=== PATIENT | female | born 1935 | race African-American/Black ===

== ENCOUNTER 2016-09-02 16:47 | Emergency (ER) | payer MEDICARE, OTHER ==
--- NOTE | 2016-09-02 20:01 | ER Document Report ---
ED Medical Screen (RME) - General Chief Complaint: Leg Pain Stated Complaint: PAIN IN LEGS Time Seen by Provider: 09/02/16 19:42 Mode of Arrival: Wheelchair Notes: This is a 81-year-old female with a history of hypertension, coronary artery disease, and hyperlipidemia who presents with painful swelling in her legs. She states that the right leg seems more swollen today however her left leg has had blisters anteriorly which have recently ruptured. Her symptoms have been present for the past week. She denies any fevers or chills but states she overall just does not feel well. No prior history of DVT. Prior history of cellulitis. Patient does not have a history of CHF and is not on a diuretic. She called her primary care physician today (Dr. Cuadra) about these symptoms, and she states she was told to come to the ER for further evaluation I have greeted and performed a rapid initial assessment of this patient. A comprehensive ED assessment and evaluation of the patient, analysis of test results and completion of the medical decision making process will be conducted by additional ED providers. TRAVEL OUTSIDE OF THE [place] IN LAST 30 DAYS: No - Related Data Allergies/Adverse Reactions: Sulfa (Sulfonamide Antibiotics) Allergy (Verified 08/18/13 11:26) DIZZY Past Medical History - Past Medical History Cardiac Medical History: Reports: Hx Hypertension - MEDICATED Denies: Hx Heart Attack Pulmonary Medical History: Denies: Hx Asthma Neurological Medical History: Denies: Hx Cerebrovascular Accident, Hx Seizures Renal/ Medical History: Denies: Hx Peritoneal Dialysis GI Medical History: Denies: Hx Hepatitis, Hx Hiatal Hernia, Hx Ulcer Infectious Medical History: Denies: Hx Hepatitis Past Surgical History: Reports: Hx Hysterectomy, Hx Open Heart Surgery - STENTS X1 2010. Denies: Hx Mastectomy, Hx Pacemaker Physical Exam - Vital signs Vitals: Temp Pulse Resp BP Pulse Ox 98.5 F 97 16 174/102 H 100 09/02/16 18:14 09/02/16 18:14 09/02/16 18:14 09/02/16 18:14 09/02/16 18:14 - General General appearance: Appears well In distress: None - Cardiovascular Rhythm: Regular Heart sounds: Normal auscultation, S1 appreciated, S2 appreciated - Extremities Notes: 1-2+ edema to lower legs bilaterally, R>L. L medial chatterjee with induration and warmth, and several areas of superficial skin breakdown anteriorly where blisters have ruptured. Course - Vital Signs Vital signs: Temp Pulse Resp BP Pulse Ox 98.5 F 97 16 174/102 H 100 09/02/16 18:14 09/02/16 18:14 09/02/16 18:14 09/02/16 18:14 09/02/16 18:14
[2016-09-02 20:42] LABS: ABSOLUTE EOSINOPHILS # (AUTO) 0.2 10^3/uL (0.0-0.6); ABSOLUTE MONOCYTES (AUTO) 0.4 10^3/uL (0.1-1.4); ABSOLUTE NEUT (AUTO) 4.2 10^3/uL (1.7-8.2); BASOPHILS % (AUTO) 0.3 % (0-2); EOSINOPHILS % (AUTO) 2.3 % (0-6); HEMATOCRIT 34.6 % (36.0-47.0); HEMOGLOBIN 11.2 g/dL (12.0-15.5); LYMPHOCYTES % (AUTO) 29.6 % (13-45); MEAN CORPUSCULAR HEMOGLOBIN 32.5 pg (27.0-33.4); MEAN CORPUSCULAR HGB CONC 32.4 g/dL (32.0-36.0); MEAN CORPUSCULAR VOLUME 100 fl (80-97); MONOCYTES % (AUTO) 5.9 % (3-13); RED BLOOD COUNT 3.45 10^6/uL (3.72-5.28); RED CELL DISTRIBUTION WIDTH 18.2 % (11.5-14.0); SEGMENTED NEUTROPHILS % (AUTO) 61.9 % (42-78); WHITE BLOOD COUNT 6.8 10^3/uL (4.0-10.5)
[2016-09-02 20:55] LABS: ALANINE AMINOTRANSFERASE 28 U/L (9-52); ALBUMIN 4.1 g/dL (3.5-5.0); ALKALINE PHOSPHATASE 103 U/L (38-126); ANION GAP 11 (5-19); ASPARTATE AMINO TRANSFERASE 23 U/L (14-36); BILIRUBIN,DIRECT 0.2 mg/dL (0.0-0.4); BILIRUBIN,TOTAL 0.5 mg/dL (0.2-1.3); BLOOD UREA NITROGEN 26 mg/dL (7-20); CARBON DIOXIDE 28 mmol/L (22-30); CHLORIDE 106 mmol/L (98-107); CREATININE RESULT 1.25 mg/dL (0.52-1.25); GLUCOSE 100 mg/dL (75-110); POTASSIUM 4.6 mmol/L (3.6-5.0); SODIUM 144.7 mmol/L (137-145); TOTAL PROTEIN 7.6 g/dL (6.3-8.2)
--- NOTE | 2016-09-02 21:24 | ER Document Report ---
ED General - General Chief Complaint: Leg Pain Stated Complaint: PAIN IN LEGS Time Seen by Provider: 09/02/16 19:42 Mode of Arrival: Wheelchair Notes: Patient is a 81-year-old female who presents with concerns regarding blistering and weeping from wounds of her bilateral lower extremities over the last 24 hours. Patient states that she recently started wearing compression stockings due to persistent bilateral lower extremity edema. She reports that after wearing them for only 2-3 hours she developed blisters which sleeps out a clear liquid. This prompted her to come to the emergency department for further assessment. She denies any significant pain to lower extremities but notes that at baseline she does have a mild, dull aching pain to the area. Nothing improves or worsens her symptoms. She has not seen her primary care doctor regarding today's concerns. She denies any fever, streaking redness or constitutional symptoms. TRAVEL OUTSIDE OF THE [place] IN LAST 30 DAYS: No - Related Data Allergies/Adverse Reactions: Sulfa (Sulfonamide Antibiotics) Allergy (Verified 08/18/13 11:26) DIZZY Past Medical History - General Information source: Patient - Social History Smoking Status: Never Smoker Frequency of alcohol use: None Drug Abuse: None Lives with: Family Family History: Reviewed & Not Pertinent Patient has suicidal ideation: No Patient has homicidal ideation: No - Past Medical History Cardiac Medical History: Reports: Hx Hypertension - MEDICATED Denies: Hx Heart Attack Pulmonary Medical History: Denies: Hx Asthma Neurological Medical History: Denies: Hx Cerebrovascular Accident, Hx Seizures Renal/ Medical History: Denies: Hx Peritoneal Dialysis GI Medical History: Denies: Hx Hepatitis, Hx Hiatal Hernia, Hx Ulcer Infectious Medical History: Denies: Hx Hepatitis Past Surgical History: Reports: Hx Hysterectomy, Hx Open Heart Surgery - STENTS X1 2010. Denies: Hx Mastectomy, Hx Pacemaker Review of Systems - Review of Systems Notes: Constitutional: Negative for fever. HENT: Negative for sore throat. Eyes: Negative for visual changes. Cardiovascular: Negative for chest pain. Respiratory: Negative for shortness of breath. Gastrointestinal: Negative for abdominal pain, vomiting or diarrhea. Genitourinary: Negative for dysuria. Musculoskeletal: Negative for back pain. Skin: Positive for blistering of the bilateral lower extremities Neurological: Negative for headaches, weakness or numbness. 10 point ROS negative except as marked above and in HPI. Physical Exam - Vital signs Vitals: Temp Pulse Resp BP Pulse Ox 98.5 F 97 16 174/102 H 100 09/02/16 18:14 09/02/16 18:14 09/02/16 18:14 09/02/16 18:14 09/02/16 18:14 Interpretation: Hypertensive Notes: PHYSICAL EXAMINATION: GENERAL: Well-appearing, well-nourished and in no acute distress. HEAD: Atraumatic, normocephalic. EYES: Pupils equal round and reactive to light, extraocular movements intact, sclera anicteric, conjunctiva are normal. ENT: nares patent, oropharynx clear without exudates. Moist mucous membranes. NECK: Normal range of motion, supple without lymphadenopathy LUNGS: Breath sounds clear to auscultation bilaterally and equal. No wheezes rales or rhonchi. HEART: Regular rate and rhythm without murmurs ABDOMEN: Soft, nontender, normoactive bowel sounds. No guarding, no rebound. No masses appreciated. EXTREMITIES: Normal range of motion, no pitting or edema. No cyanosis. NEUROLOGICAL: No focal neurological deficits. Moves all extremities spontaneously and on command. PSYCH: Normal mood, normal affect. SKIN: Warm, Dry, normal turgor, changes consistent with chronic venous stasis in the bilateral lower extremities with several areas of skin peeling and weeping of edema Course - Re-evaluation Re-evalutation: 09/02/16 21:23 Patient presents with findings most consistent with bilateral lower extremity venous stasis. A venous Doppler study is without any evidence of an acute DVT. Patient has no evidence of a cellulitis. She is otherwise very well in appearance, in no acute distress and denies any additional concerns or complaints. I suspect the blistering is secondary to fluid movement secondary to application of the compression stockings. At this time will discharge with return precautions and follow-up recommendations. Verbal discharge instructions given a the bedside and opportunity for questions given. Medication warnings reviewed. Patient is in agreement with this plan and has verbalized understanding of return precautions and the need for primary care follow-up in the next 24-72 hours. - Vital Signs Vital signs: Temp Pulse Resp BP Pulse Ox 98.5 F 103 H 18 144/83 H 97 09/02/16 18:14 09/02/16 21:40 09/02/16 21:40 09/02/16 21:40 09/02/16 21:40 - Laboratory Result Diagrams: 09/02/16 20:20 09/02/16 20:20 Laboratory results interpreted by me: 09/02/16 09/02/16 20:20 20:20 RBC 3.45 L Hgb 11.2 L Hct 34.6 L MCV 100 H RDW 18.2 H BUN 26 H Est GFR ( Amer) 50 L Est GFR (Non-Af Amer) 41 L Discharge - Discharge Clinical Impression: Venous stasis Condition: Good Disposition: HOME, SELF-CARE Additional Instructions: Please continue to wear the compression stockings as directed. Return if you develop a fever greater than 101F, you have increasing pain in the lower extremities, develops spreading redness, you did have pus from the wound, or any other symptoms that are worrisome to you. Referrals: DONNA VEGA MD [Primary Care Provider] - Follow up as needed
[2016-09-02 21:42] VITALS: BP 144/83
--- NOTE | 2016-09-02 22:07 | RADIOLOGY REPORT (SQ) ---
EXAM DESCRIPTION: VENOUS BILATERAL LOWER COMPLETED DATE/TIME: 09/02/2016 9:59 pm REASON FOR STUDY: swelling COMPARISON: None. TECHNIQUE: Dynamic and static gasca scale and color images acquired of both lower extremity venous sy stems. Selected spectral images acquired with additional compression and augmentation maneuvers. Imag es stored on PACS. LIMITATIONS: None. FINDINGS: RIGHT LEG COMMON FEMORAL AND FEMORAL: Normal phasicity, compression and augmentation. No visualized echogenic m aterial on gasca scale. No defects on color images. POPLITEAL: Normal compression and augmentation. No visualized echogenic material on gasca scale. No de fects on color images. CALF VESSELS: Normal compression and augmentation. No visualized echogenic material on gasca scale. No defects on color image. GSV AND SSV: Normal compression. No visualized echogenic material on gasca scale. No defects on color images. ANY DEEP VENOUS INSUFFICIENCY: Not evaluated. ANY EVIDENCE OF POPLITEAL CYST: No. OTHER: No other significant finding. LEFT LEG COMMON FEMORAL AND FEMORAL: Normal phasicity, compression and augmentation. No visualized echogenic m aterial on gasca scale. No defects on color images. POPLITEAL: Normal compression and augmentation. No visualized echogenic material on gasca scale. No de fects on color images. CALF VESSELS: Normal compression and augmentation. No visualized echogenic material on gasca scale. No defects on color images. GSV AND SSV: Normal compression. No visualized echogenic material on gasca scale. No defects on color images. ANY DEEP VENOUS INSUFFICIENCY: Not evaluated. ANY EVIDENCE POPLITEAL CYST: No. OTHER: No other significant finding. IMPRESSION: NO EVIDENCE DVT OR SVT IN EITHER LEG. TECHNICAL DOCUMENTATION: JOB ID: [id number] [employer]- All Rights Reserved
== END 2016-09-02 21:45 | disposition home or self-care (01) ==
LOC: ER 16:47
DX: I87.8 Other specified disorders of veins (principal); R60.0 Localized edema; Z88.2 Allergy status to sulfonamides; I10 Essential (primary) hypertension; Z98.61 Coronary angioplasty status
CPT/HCPCS: 36415; 80053; 85025; 87040; 93970; 99284

== ENCOUNTER 2017-01-07 13:54 | Emergency (ER) | payer MEDICARE, OTHER ==
--- NOTE | 2017-01-07 14:47 | ER Document Report ---
ED General - General Chief Complaint: Fall Stated Complaint: FEET PAIN Time Seen by Provider: 01/07/17 14:19 Mode of Arrival: Medic Information source: Patient, Relative, [facility] Records Notes: This 81-year-old female patient brought to the emergency room by EMS for altered mental status. She does suffer from some dementia, lives alone. She has 3 children that check on her from time to time. Her daughter who is present now lives in [place], [place]. She reports when she called her yesterday after she had fallen that she thinks the patient was up walking around. She states today the patient seemed to be more confused than her baseline so she called 911 to bring her to the hospital. The patient had been complaining of pain to her feet and pain to her low back. The patient tells me during the history that it is her right ankle that hurts not the left. She does have chronic renal insufficiency with lower extremity edema which has been addressed here many months ago. She will not wear the compression stockings that were recommended. TRAVEL OUTSIDE OF THE [place] IN LAST 30 DAYS: No - Related Data Allergies/Adverse Reactions: Sulfa (Sulfonamide Antibiotics) Allergy (Verified 08/18/13 11:26) DIZZY Past Medical History - General Information source: Patient, Relative, [facility] Records - Social History Smoking Status: Never Smoker Cigarette use (# per day): No Chew tobacco use (# tins/day): No Smoking Education Provided: No Frequency of alcohol use: None Drug Abuse: None Lives with: Alone Family History: Reviewed & Not Pertinent - Past Medical History Cardiac Medical History: Reports: Hx Congestive Heart Failure, Hx Coronary Artery Disease, Hx Hypercholesterolemia, Hx Hypertension - MEDICATED Pulmonary Medical History: Reports: None EENT Medical History: Reports: None Neurological Medical History: Reports: None Endocrine Medical History: Reports: None Renal/ Medical History: Reports: None GI Medical History: Reports: None Musculoskeltal Medical History: Reports Hx Arthritis Psychiatric Medical History: Reports: Hx Dementia Traumatic Medical History: Reports: None Infectious Medical History: Reports: None Past Surgical History: Reports: Hx Cardiac Catheterization, Hx Coronary Stent, Hx Hysterectomy Review of Systems - Review of Systems Constitutional: No symptoms reported EENT: No symptoms reported Cardiovascular: Edema Respiratory: No symptoms reported Gastrointestinal: No symptoms reported Genitourinary: No symptoms reported Female Genitourinary: Post menopausal Musculoskeletal: Leg swelling, Ankle swelling Skin: Other - Some skin breakdown to the lower extremities Hematologic/Lymphatic: No symptoms reported Neurological/Psychological: Confusion, Dementia Physical Exam - Vital signs Vitals: Temp Pulse Resp BP Pulse Ox 98.2 F 100 18 152/87 H 98 01/07/17 14:19 01/07/17 14:19 01/07/17 14:19 01/07/17 14:19 01/07/17 14:19 Interpretation: Normal - General General appearance: Appears well, Alert In distress: None - HEENT Head: Normocephalic, Atraumatic Eyes: Normal Pupils: PERRL Neck: Normal - Respiratory Respiratory status: No respiratory distress Breath sounds: Normal - Cardiovascular Rhythm: Regular Heart sounds: Normal auscultation Murmur: No - Abdominal Inspection: Normal Bowel sounds: Normal Tenderness: Nontender - Back Back: Tender - Minimal tenderness to the lower lumbar back and spinous processes - Extremities General upper extremity: Normal inspection General lower extremity: Edema, Other - Chronic venous stasis edema with skin thickening and minimal ulcerations to the lower extremity - Neurological Neuro grossly intact: Yes - Psychological Associated symptoms: Normal mood, Confused - Some confusion and dementia - Skin Skin Temperature: Warm Skin Moisture: Dry Skin Color: Normal Course - Vital Signs Vital signs: Temp Pulse Resp BP Pulse Ox 98.2 F 91 18 148/84 H 99 01/07/17 14:19 01/07/17 18:06 01/07/17 18:06 01/07/17 18:06 01/07/17 18:06 - Laboratory Result Diagrams: 01/07/17 15:23 01/07/17 15:23 Laboratory results interpreted by me: 01/07/17 01/07/17 01/07/17 15:23 15:23 16:51 RBC 2.72 L Hgb 10.3 L Hct 30.1 L MCV 111 H MCH 38.1 H RDW 16.1 H BUN 27 H Creatinine 1.27 H Est GFR ( Amer) 49 L Est GFR (Non-Af Amer) 41 L Urine Urobilinogen 2.0 H Ur Leukocyte Esterase LARGE H Urine Ascorbic Acid 20 H - Diagnostic Test Radiology reviewed: Image reviewed, Reports reviewed - Degenerative disc disease , L4 on 5 spondylolisthesis, no acute process. Discharge - Discharge Clinical Impression: Venous insufficiency of both lower extremities Urinary tract infection Qualifiers: Urinary tract infection type: site unspecified Hematuria presence: without hematuria Qualified Code(s): N39.0 - Urinary tract infection, site not specified Condition: Stable Disposition: HOME, SELF-CARE Additional Instructions: Urinary Tract Infection: Your evaluation indicates that you have a urinary tract infection. This is due to germs growing in the bladder. This is a common problem. This infection usually responds quickly to antibiotics. Your antibiotic should be taken exactly as prescribed. Drink plenty of fluids -- three to four quarts a day. Occasionally, a bladder anesthetic will be prescribed to help stop the feeling of urgency until the antibiotic has a chance to clear the infection. This may cause your urine to be dark orange. Certain urine infections require a culture. If the doctor obtained a culture, the results will be back in two days. You should call to see if a change in treatment is needed. A repeat urinalysis after you finish treatment is often recommended. The physician will let you know if further testing is required. Call the doctor if you develop fever, chills, flank pain, inability to urinate, or blood in the urine. Take medications as prescribed. Drink plenty fluids. Follow-up with Dr. Vega on Wednesday to recheck your urine. RETURN TO THE EMERGENCY ROOM IF ANY NEW OR WORSENING SYMPTOMS. Prescriptions: Ciprofloxacin HCl [Cipro 250 mg Tablet] 1 tab PO BID #10 tab Referrals: DONNA VEGA MD [Primary Care Provider] - Follow up in 3-5 days
[2017-01-07 15:52] LABS: ABSOLUTE LYMPHOCYTES (AUTO) 1.4 10^3/uL (0.5-4.7); ABSOLUTE MONOCYTES (AUTO) 0.4 10^3/uL (0.1-1.4); ABSOLUTE NEUT (AUTO) 6.3 10^3/uL (1.7-8.2); BASOPHILS % (AUTO) 0.2 % (0-2); EOSINOPHILS % (AUTO) 0.2 % (0-6); HEMATOCRIT 30.1 % (36.0-47.0); HEMOGLOBIN 10.3 g/dL (12.0-15.5); HGB HCT DIFFERENCE 0.8; LYMPHOCYTES % (AUTO) 17.7 % (13-45); MEAN CORPUSCULAR HEMOGLOBIN 38.1 pg (27.0-33.4); MEAN CORPUSCULAR HGB CONC 34.3 g/dL (32.0-36.0); MONOCYTES % (AUTO) 4.9 % (3-13); RED BLOOD COUNT 2.72 10^6/uL (3.72-5.28); RED CELL DISTRIBUTION WIDTH 16.1 % (11.5-14.0); WHITE BLOOD COUNT 8.1 10^3/uL (4.0-10.5)
[2017-01-07 16:18] LABS: ALANINE AMINOTRANSFERASE 26 U/L (9-52); ALBUMIN 4.1 g/dL (3.5-5.0); ALKALINE PHOSPHATASE 108 U/L (38-126); ANION GAP 10 (5-19); ASPARTATE AMINO TRANSFERASE 23 U/L (14-36); BILIRUBIN,DIRECT 0.4 mg/dL (0.0-0.4); BILIRUBIN,TOTAL 0.9 mg/dL (0.2-1.3); BLOOD UREA NITROGEN 27 mg/dL (7-20); CALCIUM 9.4 mg/dL (8.4-10.2); CARBON DIOXIDE 25 mmol/L (22-30); CHLORIDE 106 mmol/L (98-107); CREATININE RESULT 1.27 mg/dL (0.52-1.25); GLUCOSE 94 mg/dL (75-110); MEAN CORPUSCULAR VOLUME 111 fl (80-97); POTASSIUM 4.4 mmol/L (3.6-5.0); SODIUM 140.7 mmol/L (137-145); TOTAL PROTEIN 7.1 g/dL (6.3-8.2)
[2017-01-07 16:22] LABS: TOXIC GRANULATION SLIGHT
[2017-01-07 16:23] LABS: ANISOCYTOSIS 1+; OVALOCYTES SLIGHT; POIKILOCYTOSIS SLIGHT; POLYCHROMASIA SLIGHT; TARGET CELLS SLIGHT; TEAR DROP CELLS SLIGHT
--- NOTE | 2017-01-07 16:32 | RADIOLOGY REPORT (SQ) ---
EXAM DESCRIPTION: L SPINE WHOLE COMPLETED DATE/TIME: 01/07/2017 3:48 pm REASON FOR STUDY: fall, lumbar back pain COMPARISON: 09/29/2007 NUMBER OF VIEWS: Five views including obliques. TECHNIQUE: AP, lateral, oblique, and sacral radiographic images acquired of the lumbar spine. LIMITATIONS: Poor positioning slightly limits evaluation of the lower lumbar spine. FINDINGS: MINERALIZATION: Normal. SEGMENTATION: Normal. No transitional anatomy. ALIGNMENT: There appears to be grade 1 anterolisthesis of L4 on L5. VERTEBRAE: Maintained height. No fracture or worrisome bone lesion. DISCS: Disc spaces are narrowed throughout lumbar spine. Marginal osteophytes are present at several levels. POSTERIOR ELEMENTS: Hypertrophic facet changes are present from L3-S1. HARDWARE: None in the spine. PARASPINAL SOFT TISSUES: Normal. PELVIS: Intact as visualized. No fractures or worrisome bone lesions. SI joints intact. OTHER: No other significant finding. IMPRESSION: 1. No acute abnormality. 2. Anterolisthesis of L4 on L5. 3. Multilevel degenerative disc disease, spondylosis, and facet arthropathy. TECHNICAL DOCUMENTATION: JOB ID: [id number] [employer]- All Rights Reserved
[2017-01-07 17:33] LABS: APPEARANCE,URINE CLOUDY; BILIRUBIN,URINE NEGATIVE (NEGATIVE); GLUCOSE, URINE NEGATIVE (NEGATIVE); KETONES,URINE NEGATIVE (NEGATIVE); LEUKOCYTE ESTERASE,URINE LARGE (NEGATIVE); NITRITE,URINE NEGATIVE (NEGATIVE); PROTEIN,URINE NEGATIVE (NEGATIVE); URINE SPECIFIC GRAVITY 1.015
[2017-01-07] MEDS ORDERED: LIDOCAINE 1% INJ-PF (10 MG/ML) 30 ML SDV INJ ONE (17:40)
[2017-01-07] MEDS ORDERED: CEFTRIAXONE INJ 1000 MG VIAL IM ONE (17:40)
[2017-01-07 18:08] VITALS: BP 148/84
[2017-01-08 14:36] LABS: PATH REVIEW PATHOLOGIST REVIEWED
== END 2017-01-07 18:08 | disposition home or self-care (01) ==
LOC: ER 13:54
DX: I87.2 Venous insufficiency (chronic) (peripheral) (principal); N39.0 Urinary tract infection, site not specified; I50.9 Heart failure, unspecified; I25.10 Atherosclerotic heart disease of native coronary artery without angina pectoris; I11.0 Hypertensive heart disease with heart failure; E78.00 Pure hypercholesterolemia, unspecified; F03.90 Unspecified dementia, unspecified severity, without behavioral disturbance, psychotic disturbance, mood disturbance, and anxiety; Z90.710 Acquired absence of both cervix and uterus; Z88.2 Allergy status to sulfonamides; Z60.2 Problems related to living alone
CPT/HCPCS: 99284; 96372; 51701; 36415; 87086; 85025; 87088; 80053; 81001; 87186; 72110; J3490; J0696

== ENCOUNTER 2017-07-09 13:19 | Emergency (ER) | payer MEDICARE ==
--- NOTE | 2017-07-09 14:03 | ER Document Report ---
ED General - General Stated Complaint: LEG SWELLING Time Seen by Provider: 07/09/17 13:31 Notes: Patient is here to be seen for swelling of both of her legs which is been going on for several weeks. Patient seems a little confused because she says initially that her swelling of her legs has been there since July, but when I pointed out to her that we are in the month of July and only 6 days into the month, she said all it must not be July. Then she said it has been that way for about a year. Patient says she fell a year ago and injured her feet. She denies chest pains. Denies any shortness of breath. She is here with her daughter. Daughter says that patient's primary care provider, Dr. Cuadra, wants me to call him. I did so and he indicated that the patient needs placement in an assisted living facility your some other level of care because she has difficulty walking even with her walker and he is concerned she is going to fall and sustaining a significant injury or fracture. Admission for those problems that this patient's having, is very unlikely unless I find something abnormal in her medical workup here today. I agreed to get our social worker assistant/land use planner, Abilio Ware involved in assessing the patient. TRAVEL OUTSIDE OF THE [place] IN LAST 30 DAYS: No - Related Data Allergies/Adverse Reactions: Sulfa (Sulfonamide Antibiotics) Allergy (Verified 08/18/13 11:26) DIZZY Past Medical History - Social History Smoking Status: Unknown if Ever Smoked Family History: Reviewed & Not Pertinent - Past Medical History Cardiac Medical History: Reports: Hx Congestive Heart Failure, Hx Coronary Artery Disease, Hx Hypercholesterolemia, Hx Hypertension - MEDICATED Denies: Hx Heart Attack Neurological Medical History: Denies: Hx Cerebrovascular Accident, Hx Seizures Musculoskeltal Medical History: Reports Hx Arthritis Psychiatric Medical History: Reports: Hx Dementia Infectious Medical History: Denies: Hx Hepatitis Past Surgical History: Reports: Hx Cardiac Catheterization, Hx Coronary Stent, Hx Hysterectomy, Hx Open Heart Surgery - STENTS X1 2010. Denies: Hx Mastectomy , Hx Pacemaker Review of Systems - Review of Systems Notes: REVIEW OF SYSTEMS: CONSTITUTIONAL : Denies fever. EENT: Denies eye, ear, nose or mouth or throat pain or other symptoms. CARDIOVASCULAR: Denies chest pain. Leg swelling described under HPI. RESPIRATORY: Denies cough, chest congestion, or shortness of breath. GASTROINTESTINAL: Denies abdominal pain or nausea, vomiting, or diarrhea. GENITOURINARY: Denies difficulty or painful urinating, urinary frequency, blood in urine. MUSCULOSKELETAL: Denies back or neck pain. Denies joint pain or swelling. Swelling from mid lower leg down to and including the feet bilaterally SKIN: Denies rash or skin lesions. The appearance of stasis dermatitis of both lower legs from mid chatterjee downward. NEUROLOGICAL: Denies LOC or altered mental status. Denies headache. Denies sensory loss or motor deficits. ALL OTHER SYSTEMS REVIEWED AND NEGATIVE. Physical Exam - Vital signs Vitals: Temp Pulse Resp BP Pulse Ox 98.6 F 89 18 178/106 H 100 07/09/17 14:36 07/09/17 14:36 07/09/17 14:36 07/09/17 14:36 07/09/17 14:36 Interpretation: Hypertensive - Moderate - Notes Notes: PHYSICAL EXAMINATION: GENERAL: Well-appearing, in no acute distress. Vital signs noted with blood pressure moderately elevated. Patient is very pleasant and answers questions, although sometimes seemingly confused answers. HEAD: Atraumatic, normocephalic. EYES: Pupils equal round and reactive to light, extraocular movements intact. ENT: oropharynx clear without exudates. Moist mucous membranes. NECK: Normal range of motion, supple. No carotid bruits heard. LUNGS: Breath sounds clear and equal bilaterally. HEART: Regular rate and rhythm without murmurs. ABDOMEN: Soft, nontender. No guarding or rebound. No masses. BACK: No tenderness throughout entire back. EXTREMITIES: Normal range of motion without pain. Both lower legs from about mid chatterjee down to and including the feet have some soft tissue swelling in small amount of pitting edema, +2 bilaterally. She has chronic stasis dermatitis changes of the skin of her lower legs and feet. There is no erythema, heat to the touch, lymphangitis, or any drainage or anything that suggest an acute process. NEUROLOGICAL: Normal speech, although seems a bit confused. Gait not tested. Reportedly, patient walks extremely slowly, even when using a cane or a walker. Normal sensory, motor, and reflex exams. Awake, alert, but not oriented. PSYCH: Normal mood, normal affect. SKIN: Warm, dry. Course - Re-evaluation Re-evalutation: 07/09/17 18:55 All lab tests showing only minor abnormalities, nothing of clinical significance. Venous Doppler of both lower extremities show no blood clots in either leg. Chest x-ray is unremarkable. EKG showed no acute changes. Patient will be followed up by Abilio Ware Wednesday to arrange for a wheelchair for the patient and she is going to help them work on finding placement for the patient. Discussed the case with Dr. Cuadra, after the patient had been discharge. He will follow her up in the office, as well. - Vital Signs Vital signs: Temp Pulse Resp BP Pulse Ox 99.0 F 89 18 192/97 H 100 07/09/17 18:02 07/09/17 18:02 07/09/17 18:02 07/09/17 18:02 07/09/17 18:02 - Laboratory Result Diagrams: 07/09/17 14:52 07/09/17 14:52 Laboratory results interpreted by me: 07/09/17 07/09/17 07/09/17 13:15 14:52 16:06 RBC 3.58 L Hgb 11.8 L MCV 101 H RDW 16.0 H Sodium 148.1 H Chloride 112 H BUN 33 H Est GFR ( Amer) 56 L Est GFR (Non-Af Amer) 46 L Urine Ascorbic Acid 40 H - EKG Interpretation by Me EKG shows normal: Sinus rhythm Rate: Normal Rhythm: NSR - At 93 Additional EKG results interpreted by me: 07/09/17 16:23 EKG is normal. Discharge - Discharge Clinical Impression: Dependent edema, Stasis dermatitis of both legs, Early onset Alzheimer's dementia Condition: Stable Disposition: HOME, SELF-CARE Additional Instructions: Edema, Peripheral You have swelling in your legs. This is called peripheral edema. It can be caused by "leaky capillaries," inflammation, disease of the leg veins, or excess salt and water in your body. Edema may be a sign of heart, kidney, or liver disease. A medical evaluation can determine if there is a serious underlying cause for your edema. Avoid prolonged standing. If you must sit for a long time, occasionally get up and walk around or elevate your legs. Support stockings can be helpful in limiting swelling. Often diuretic or water pills are used to remove excess salt and water from your body. Call the doctor or return if you develop increased swelling, pain, or redness, shortness of breath, chest pain, or any other significant change. In addition to the peripheral edema, you have chronic stasis dermatitis from poor circulation in your legs. Try to elevate your legs on pillows when you are resting in bed or your recliner to try to get some of the swelling out of your feet. NORMAL EXAM AND WORKUP: At this time, your examination and workup show no significant abnormality. No significant abnormal physical findings were noted. All laboratory, EKG, and imaging (x-ray, CT scans, ultrasound) studies that were ordered show no significant abnormality. Although your examination and all studies that were ordered showed no significant abnormal finding, there are no examinations and no studies that are 100% accurate. There is always the possibility that some abnormality could exist and not be detected with physical examination or within the limits and capabilities of laboratory and other studies. You should return or follow up as you were instructed on your visit today for further evaluation if your symptoms do not resolve. Altered Mental Status An altered mental status is a change in the normal functioning of the brain. This alteration of function can range from minor decreased brain function with some forgetfulness and confusion to complete loss of consciousness and coma. There are many possible causes of an altered mental status and include brain injuries such as trauma or strokes, problems with oxygen supply to the brain, fever and infections of the brain and/or elsewhere in the body, metabolic abnormalities such as low or high blood sugar, overdoses or excessive medication ingestion, and mental and psychiatric illnesses. Sometimes the altered mental status resolves and a definite cause is not determined. If a cause for your altered mental status was found, it has likely been corrected. Your evaluation has not shown any condition that requires that you be admitted to the hospital. It is believed that you are safe to leave and return to your home. If you have a return of your symptoms, you should return for re-evaluation. Early dementia The exam shows a decrease in mental ability called dementia. Signs of dementia include a gradual loss of memory and a decreased ability to reason and solve problems. Personality changes, hostility, lack of self-care, and loss of bladder or bowel control are later signs of dementia. In these later stages, patients may become confused, lost, fearful, or agitated, even in familiar places. Alzheimer's disease is the most common type of dementia. It has no known cause or specific treatment. Other causes include alcohol and drug abuse, medication effects (especially tranquilizers and sleeping pills), strokes, head injuries, and brain tumors. Sometimes severe depression in an elderly person is mistaken for dementia, and this can be treated if recognized. A complete medical evaluation and ongoing care with a doctor is important. Most people with dementia need help or supervision with daily living. Some may be able to live independently with occasional help; others require foster care or even retirement placement. Alcohol, sedatives, and antihistamines may make the symptoms worse and should be avoided. Alzheimer's disease support groups are available in some communities and can be very valuable to the entire family. Prescription medication can ease the symptoms of Alzheimer's disease in some patients. Please arrange for medical follow-up. Return here if there is a sudden change in mental function, inability to move an arm or leg, inability to speak, fever, or any other significant change. Abilio is going to arrange for you to get a wheelchair Wednesday. Call her at the number she provided. FOLLOW-UP CARE: If you have been referred to a physician for follow-up care, call the physician s office for an appointment as you were instructed or within the next two days. If you experience worsening or a significant change in your symptoms, notify the physician immediately or return to the Emergency Department at any time for re-evaluation. Referrals: DONNA CUADRA MD [Primary Care Provider] - Follow up in 3-5 days
--- NOTE | 2017-07-09 14:36 | RADIOLOGY REPORT (SQ) ---
EXAM DESCRIPTION: CHEST 2 VIEWS COMPLETED DATE/TIME: 07/09/2017 2:23 pm REASON FOR STUDY: Swelling of both lower legs. COMPARISON: June 2010 EXAM PARAMETERS: NUMBER OF VIEWS: two views TECHNIQUE: Digital Frontal and Lateral radiographic views of the chest acquired. RADIATION DOSE: NA LIMITATIONS: none FINDINGS: LUNGS AND PLEURA: No opacities, masses or pneumothorax. No pleural effusion. MEDIASTINUM AND HILAR STRUCTURES: No masses or contour abnormalities. HEART AND VASCULAR STRUCTURES: Heart normal size. No evidence for failure. BONES: No acute findings. Degenerative changes are identified in the thoracic spine. HARDWARE: None in the chest. OTHER: No other significant finding. IMPRESSION: NO ACUTE RADIOGRAPHIC FINDING IN THE CHEST. TECHNICAL DOCUMENTATION: JOB ID: [id number] [employer]- All Rights Reserved Reading location - IP/workstation name: [email or web address]
[2017-07-09 15:19] LABS: ALANINE AMINOTRANSFERASE 38 U/L (9-52); ALBUMIN 4.2 g/dL (3.5-5.0); ALKALINE PHOSPHATASE 93 U/L (38-126); ANION GAP 11 (5-19); ASPARTATE AMINO TRANSFERASE 32 U/L (14-36); BILIRUBIN,DIRECT 0.4 mg/dL (0.0-0.4); BILIRUBIN,TOTAL 0.6 mg/dL (0.2-1.3); BLOOD UREA NITROGEN 33 mg/dL (7-20); CALCIUM 9.2 mg/dL (8.4-10.2); CARBON DIOXIDE 25 mmol/L (22-30); CHLORIDE 112 mmol/L (98-107); GLUCOSE 99 mg/dL (75-110); POTASSIUM 4.7 mmol/L (3.6-5.0); SODIUM 148.1 mmol/L (137-145); TOTAL PROTEIN 7.6 g/dL (6.3-8.2)
[2017-07-09 15:50] LABS: ABSOLUTE EOSINOPHILS # (AUTO) 0.1 10^3/uL (0.0-0.6); ABSOLUTE LYMPHOCYTES (AUTO) 2.2 10^3/uL (0.5-4.7); ABSOLUTE MONOCYTES (AUTO) 0.4 10^3/uL (0.1-1.4); ABSOLUTE NEUT (AUTO) 4.6 10^3/uL (1.7-8.2); BASOPHILS % (AUTO) 0.5 % (0-2); EOSINOPHILS % (AUTO) 1.1 % (0-6); HEMATOCRIT 36.2 % (36.0-47.0); HEMOGLOBIN 11.8 g/dL (12.0-15.5); LYMPHOCYTES % (AUTO) 29.8 % (13-45); MEAN CORPUSCULAR HEMOGLOBIN 32.9 pg (27.0-33.4); MEAN CORPUSCULAR HGB CONC 32.5 g/dL (32.0-36.0); MEAN CORPUSCULAR VOLUME 101 fl (80-97); MONOCYTES % (AUTO) 5.3 % (3-13); PLATELET COUNT 236 10^3/uL (150-450); RED BLOOD COUNT 3.58 10^6/uL (3.72-5.28); SEGMENTED NEUTROPHILS % (AUTO) 63.3 % (42-78); TOTAL CELLS COUNTED % (AUTO) 100 %; WHITE BLOOD COUNT 7.3 10^3/uL (4.0-10.5)
--- NOTE | 2017-07-09 15:55 | RADIOLOGY REPORT (SQ) ---
EXAM DESCRIPTION: VENOUS BILATERAL LOWER COMPLETED DATE/TIME: 07/09/2017 3:41 pm REASON FOR STUDY: Swelling both lower legs 2 wks;study right and left COMPARISON: 09/02/2016 TECHNIQUE: Dynamic and static gasca scale and color images acquired of both lower extremity venous sy stems. Selected spectral images acquired with additional compression and augmentation maneuvers. Imag es stored on PACS. LIMITATIONS: None. FINDINGS: RIGHT LEG COMMON FEMORAL AND FEMORAL: Normal phasicity, compression and augmentation. No visualized echogenic m aterial on gasca scale. No defects on color images. POPLITEAL: Normal compression and augmentation. No visualized echogenic material on gasca scale. No de fects on color images. CALF VESSELS: Normal compression and augmentation. No visualized echogenic material on gasca scale. No defects on color image. GSV AND SSV: Normal compression. No visualized echogenic material on gasca scale. No defects on color images. ANY DEEP VENOUS INSUFFICIENCY: Not evaluated. ANY EVIDENCE OF POPLITEAL CYST: No. OTHER: No other significant finding. LEFT LEG COMMON FEMORAL AND FEMORAL: Normal phasicity, compression and augmentation. No visualized echogenic m aterial on gasca scale. No defects on color images. POPLITEAL: Normal compression and augmentation. No visualized echogenic material on gasca scale. No de fects on color images. CALF VESSELS: Normal compression and augmentation. No visualized echogenic material on gasca scale. No defects on color images. GSV AND SSV: Normal compression. No visualized echogenic material on gasca scale. No defects on color images. ANY DEEP VENOUS INSUFFICIENCY: Not evaluated. ANY EVIDENCE POPLITEAL CYST: No. OTHER: No other significant finding. IMPRESSION: NO EVIDENCE DVT OR SVT IN EITHER LEG. TECHNICAL DOCUMENTATION: JOB ID: [id number] [employer]- All Rights Reserved Reading location - IP/workstation name: [email or web address]
[2017-07-09 16:41] LABS: APPEARANCE,URINE CLEAR; BILIRUBIN,URINE NEGATIVE (NEGATIVE); COLOR,URINE YELLOW; GLUCOSE, URINE NEGATIVE (NEGATIVE); KETONES,URINE NEGATIVE (NEGATIVE); LEUKOCYTE ESTERASE,URINE NEGATIVE (NEGATIVE); NITRITE,URINE NEGATIVE (NEGATIVE); PROTEIN,URINE NEGATIVE (NEGATIVE); URINE SPECIFIC GRAVITY 1.016; UROBILINOGEN,URINE NEGATIVE mg/dL (<2.0)
[2017-07-09 18:09] VITALS: BP 192/97
--- NOTE | 2017-07-09 21:01 | EKG REPORT ---
SEVERITY:- NORMAL ECG - SINUS RHYTHM : Confirmed by: Mi Cesar 09-Jul-2017 21:01:29
== END 2017-07-09 18:06 | disposition home or self-care (01) ==
LOC: ER 13:19
DX: R60.9 Edema, unspecified (principal); I87.2 Venous insufficiency (chronic) (peripheral); G30.0 Alzheimer's disease with early onset; F02.80 Dementia in other diseases classified elsewhere, unspecified severity, without behavioral disturbance, psychotic disturbance, mood disturbance, and anxiety; I50.9 Heart failure, unspecified; I25.10 Atherosclerotic heart disease of native coronary artery without angina pectoris; E78.00 Pure hypercholesterolemia, unspecified; I11.0 Hypertensive heart disease with heart failure
CPT/HCPCS: 36415; 51701; 71046; 80053; 81001; 83880; 85025; 87086; 93005; 93010; 93970; 99284

== ENCOUNTER → 2019-06-01 | Outpatient (CLI) | payer MEDICARE ==
[2019-06-01 12:06] LABS: ABSOLUTE EOSINOPHILS # (AUTO) 0.1 10^3/uL (0.0-0.6); ABSOLUTE LYMPHOCYTES (AUTO) 2.2 10^3/uL (0.5-4.7); ABSOLUTE MONOCYTES (AUTO) 0.6 10^3/uL (0.1-1.4); ABSOLUTE NEUT (AUTO) 6.1 10^3/uL (1.7-8.2); BASOPHILS % (AUTO) 0.5 % (0-2); EOSINOPHILS % (AUTO) 0.8 % (0-6); HEMATOCRIT 40.4 % (36.0-47.0); HEMOGLOBIN 13.6 g/dL (12.0-15.5); LYMPHOCYTES % (AUTO) 24.6 % (13-45); MEAN CORPUSCULAR HEMOGLOBIN 28.1 pg (27.0-33.4); MEAN CORPUSCULAR HGB CONC 33.6 g/dL (32.0-36.0); MEAN CORPUSCULAR VOLUME 84 fl (80-97); MONOCYTES % (AUTO) 6.2 % (3-13); PLATELET COUNT 194 10^3/uL (150-450); RED BLOOD COUNT 4.83 10^6/uL (3.72-5.28); RED CELL DISTRIBUTION WIDTH 16.5 % (11.5-14.0); SEGMENTED NEUTROPHILS % (AUTO) 67.9 % (42-78); TOTAL CELLS COUNTED % (AUTO) 100 %
== END ==
LOC: OD 11:06
PROVIDERS: ATTEND Obstetrics & Gynecology
DX: I12.9 Hypertensive chronic kidney disease with stage 1 through stage 4 chronic kidney disease, or unspecified chronic kidney disease (principal); N18.3 Chronic kidney disease, stage 3 (moderate); I25.10 Atherosclerotic heart disease of native coronary artery without angina pectoris; Z51.81 Encounter for therapeutic drug level monitoring; Z79.899 Other long term (current) drug therapy
CPT/HCPCS: 36415; 85025

== ENCOUNTER 2019-07-15 08:17 | Emergency (ER) | payer MEDICARE ==
[2019-07-15 09:23] LABS: ALBUMIN 4.1 g/dL (3.5-5.0); ALKALINE PHOSPHATASE 88 U/L (38-126); ANION GAP 9 (5-19); ASPARTATE AMINO TRANSFERASE 35 U/L (14-36); BILIRUBIN,DIRECT 0.3 mg/dL (0.0-0.4); BILIRUBIN,TOTAL 0.5 mg/dL (0.2-1.3); BLOOD UREA NITROGEN 42 mg/dL (7-20); CALCIUM 8.8 mg/dL (8.4-10.2); CARBON DIOXIDE 26 mmol/L (22-30); CHLORIDE 105 mmol/L (98-107); GLUCOSE 105 mg/dL (75-110); POTASSIUM 3.8 mmol/L (3.6-5.0); TOTAL PROTEIN 7.6 g/dL (6.3-8.2)
[2019-07-15] MEDS ORDERED: NORMAL SALINE 500 ML IV ONE ×2 (09:27→13:42)
[2019-07-15 09:41] LABS: ALCOHOL < 10 mg/dL (NONE DETECTED)
--- NOTE | 2019-07-15 10:05 | RADIOLOGY REPORT (SQ) ---
EXAM DESCRIPTION: CHEST SINGLE VIEW IMAGES COMPLETED DATE/TIME: 07/15/2019 9:51 am REASON FOR STUDY: decreased breath sounds COMPARISON: 07/09/2017 NUMBER OF VIEWS: One view. TECHNIQUE: Single frontal radiographic view of the chest acquired. LIMITATIONS: None. FINDINGS: LUNGS AND PLEURA: Low lung volumes. No opacities, masses or pneumothorax. No pleural eff usion. MEDIASTINUM AND HILAR STRUCTURES: No masses. No contour abnormality. HEART AND VASCULAR STRUCTURES: Normal size. No evidence for failure. BONES: No acute findings. HARDWARE: None in the chest. OTHER: No other significant finding. IMPRESSION: LOW LUNG VOLUMES. NO SIGNIFICANT RADIOGRAPHIC FINDING IN THE CHEST. TECHNICAL DOCUMENTATION: JOB ID: [id number] 2010 [employer]- All Rights Reserved Reading location - IP/workstation name: [email or web address]
--- NOTE | 2019-07-15 10:07 | EKG REPORT ---
SEVERITY:- BORDERLINE ECG - SINUS RHYTHM PROBABLE LEFT ATRIAL ABNORMALITY BORDERLINE PROLONGED QT INTERVAL : Confirmed by: Renita Burton MD 15-Jul-2019 10:07:24
[2019-07-15 10:11] LABS: APPEARANCE,URINE SLIGHTLY-CLOUDY; BILIRUBIN,URINE NEGATIVE (NEGATIVE); COLOR,URINE YELLOW; GLUCOSE, URINE NEGATIVE (NEGATIVE); KETONES,URINE NEGATIVE (NEGATIVE); LEUKOCYTE ESTERASE,URINE NEGATIVE (NEGATIVE); NITRITE,URINE NEGATIVE (NEGATIVE); PROTEIN,URINE NEGATIVE (NEGATIVE); URINE SPECIFIC GRAVITY 1.015; UROBILINOGEN,URINE NEGATIVE mg/dL (<2.0)
[2019-07-15] MEDS ORDERED: LORAZEPAM INJ 2 MG/1 ML VIAL IM ONE ×2 (10:27→11:08)
[2019-07-15 12:36] LABS: ABSOLUTE EOSINOPHILS # (AUTO) 0.1 10^3/uL (0.0-0.6); ABSOLUTE LYMPHOCYTES (AUTO) 1.9 10^3/uL (0.5-4.7); ABSOLUTE MONOCYTES (AUTO) 0.6 10^3/uL (0.1-1.4); ABSOLUTE NEUT (AUTO) 6.5 10^3/uL (1.7-8.2); BASOPHILS % (AUTO) 0.3 % (0-2); EOSINOPHILS % (AUTO) 1.4 % (0-6); HEMATOCRIT 39.2 % (36.0-47.0); HEMOGLOBIN 13.2 g/dL (12.0-15.5); LYMPHOCYTES % (AUTO) 20.7 % (13-45); MEAN CORPUSCULAR HEMOGLOBIN 27.6 pg (27.0-33.4); MEAN CORPUSCULAR HGB CONC 33.6 g/dL (32.0-36.0); MEAN CORPUSCULAR VOLUME 82 fl (80-97); MONOCYTES % (AUTO) 6.2 % (3-13); PLATELET COUNT 166 10^3/uL (150-450); RED BLOOD COUNT 4.77 10^6/uL (3.72-5.28); RED CELL DISTRIBUTION WIDTH 15.3 % (11.5-14.0); SEGMENTED NEUTROPHILS % (AUTO) 71.4 % (42-78); TOTAL CELLS COUNTED % (AUTO) 100 %; WHITE BLOOD COUNT 9.1 10^3/uL (4.0-10.5)
--- NOTE | 2019-07-15 13:04 | RADIOLOGY REPORT (SQ) ---
EXAM DESCRIPTION: CT HEAD WITHOUT IMAGES COMPLETED DATE/TIME: 07/15/2019 12:35 pm REASON FOR STUDY: altered mental status COMPARISON: None. TECHNIQUE: Axial images acquired through the brain without intravenous contrast. Images reviewed wi th bone, brain and subdural windows. Additional sagittal and coronal reconstructions were generated. Images stored on PACS. All CT scanners at this facility use dose modulation, iterative reconstruction, and/or weight based d osing when appropriate to reduce radiation dose to as low as reasonably achievable (ALARA). [facility]: Dose Right [facility]: CareDose [facility]: Dose Right [facility]: Teradose 4D [facility]: Smart Pl[employer] RADIATION DOSE: CT Rad equipment meets quality standard of care and radiation dose reduction techniq ues were employed. CTDIvol: 53.2 mGy. DLP: 911 mGy-cm.mGy. LIMITATIONS: Motion artifact. FINDINGS: VENTRICLES: Prominent. CEREBRUM: No masses. No hemorrhage. No midline shift. Areas of low density in the white matter mos t likely due to chronic micro-vascular ischemic change. No evidence for acute infarction. CEREBELLUM: No masses. No hemorrhage. No alteration of density. No evidence for acute infarction. EXTRAAXIAL SPACES: Age-related involutional change. No fluid collections. No masses. ORBITS AND GLOBE: No intra- or extraconal masses. Normal contour of globe without masses. CALVARIUM: No fracture. PARANASAL SINUSES: No fluid or mucosal thickening. SOFT TISSUES: No mass or hematoma. OTHER: No other significant finding. IMPRESSION: CHRONIC CHANGES OF ATROPHY AND MICROVASCULAR ISCHEMIA. NO ACUTE PROCESS. EVIDENCE OF ACUTE STROKE: NO. TECHNICAL DOCUMENTATION: JOB ID: [id number] Quality ID # [id number]: Final reports with documentation of one or more dose reduction techniques (e.g., Au tomated exposure control, adjustment of the mA and/or kV according to patient size, use of iterative reconstruction technique) 2010 [employer]- All Rights Reserved Reading location - IP/workstation name: [email or web address]
--- NOTE | 2019-07-15 15:15 | ER Document Report ---
Entered by PORTIA SHI SCRIBE 07/15/19 0840 Acting as scribe for:CHAPITO CHANG MD ED General - General Chief Complaint: Altered Mental Status Stated Complaint: AGRESSIVE BEHAVIOR Time Seen by Provider: 07/15/19 08:20 Primary Care Provider: DONNA VEGA MD [Primary Care Provider] - Follow up as needed Mode of Arrival: Ambulatory Information source: Patient Cannot obtain history due to: Dementia Notes: This 84 year old demented female patient presents to the emergency department today via EMS for "non-compliance, increased aggression, and poor self care". This patient apparently lives alone and has family and home health that check in on her daily. When EMS arrived on scene the patient was noted to be verbally abusive as well as saturated in foul smelling urine. History is extremely limited. This patient states she does not know why she is here, stating that she was brought here by "strangers against her will". TRAVEL OUTSIDE OF THE [place] IN LAST 30 DAYS: No - Related Data Allergies/Adverse Reactions: Sulfa (Sulfonamide Antibiotics) Allergy (Verified 07/15/19 08:56) DIZZY Past Medical History - General Information source: Patient Cannot obtain history due to: Dementia - Social History Smoking Status: Unknown if Ever Smoked Family History: Reviewed & Not Pertinent - Past Medical History Cardiac Medical History: Reports: Hx Congestive Heart Failure, Hx Coronary Artery Disease, Hx Hypercholesterolemia, Hx Hypertension - MEDICATED Musculoskeletal Medical History: Reports Hx Arthritis Psychiatric Medical History: Reports: Hx Dementia Past Surgical History: Reports: Hx Cardiac Catheterization, Hx Coronary Stent, Hx Hysterectomy, Hx Open Heart Surgery - STENTS X1 2010 Review of Systems - Review of Systems -: Yes ROS unobtainable due to patient's medical condition - dementia Physical Exam - Vital signs Vitals: Resp 13 07/15/19 08:30 - Notes Notes: Physical Exam: General: Alert. HEENT: Normocephalic. Atraumatic. PERRL. Extraocular movements intact. Oropharynx clear. Neck: Supple. Non-tender. Respiratory: No respiratory distress. Clear and equal breath sounds bilaterally. Cardiovascular: Regular rate and rhythm. Abdominal: Normal Inspection. Non-tender. No distension. Normal Bowel Sounds. Back: No gross abnormalities. Extremities: Moves all four extremities. Upper extremities: Normal inspection. Normal ROM. Lower extremities: Normal inspection. No edema. Normal ROM. Neurological: Demented Psychological: unable to assess Skin: Warm. Dry. Normal color. Course - Re-evaluation Re-evalutation: 07/15/19 13:38 Patient resting comfortable after requiring sedation to allow us to examine and perform scans and x-rays and blood work on subject. Patient now is resting comfortable not showing any signs of distress. 07/15/19 15:09 Discussed with patient's daughter that that we did not find any reason to admit her mother to the hospital and requested that she come to the hospital to transport her mother back home. 07/15/19 15:14 Per conversation with patient's daughter she plans to do the best he can to be able to obtain her mother today and discharge home. Worse case scenario is that she is unable to find the support she needs to receive her mother back home today. director of environmental services consult has been submitted. - Vital Signs Vital signs: Temp Pulse Resp BP Pulse Ox 98.4 F 21 H 126/87 H 94 07/15/19 08:55 07/15/19 13:01 07/15/19 13:01 07/15/19 10:00 - Laboratory Result Diagrams: 07/15/19 12:20 07/15/19 08:24 Laboratory results interpreted by me: 07/15/19 07/15/19 08:24 12:20 RDW 15.3 H BUN 42 H Creatinine 1.58 H Est GFR ( Amer) 38 L Est GFR (MDRD) Non-Af 31 L Magnesium 2.5 H Laboratories acute kidney injury with a BUN 42 creatinine 1.58. 07/15/19 15:10 Patient's urinalysis showed a urine specific gravity 1.015 which is a very adequately hydrated urine specimen. Patient is not dehydrated in the sense that her BUN/creatinine is elevated with much more that there is a chronic nature to her renal insufficiency. - Diagnostic Test Radiology reviewed: Image reviewed, Reports reviewed Radiology results interpreted by me: 07/15/19 13:45 CT of the head shows ischemic changes but no acute stroke no acute process. Chest x-ray 1 view shows shallow inspirations otherwise negative for any acute process. - EKG Interpretation by Me Additional EKG results interpreted by me: 07/15/19 13:46 Twelve-lead EKG done 07/15/2019 at 923 shows normal sinus rhythm rate of 88 probable atrial abnormality. Artifact noted in the EKG. No other acute changes. Discharge - Discharge Clinical Impression: Dementia with aggressive behavior, Chronic renal insufficiency Condition: Stable Disposition: HOME, SELF-CARE Additional Instructions: DementiaDementia The exam shows a decrease in mental ability called dementia. Signs of dementia include a gradual loss of memory and a decreased ability to reason and solve problems. Personality changes, hostility, lack of self-care, and loss of bladder or bowel control are later signs of dementia. In these later stages, patients may become confused, lost, fearful, or agitated, even in familiar places. Alzheimer's disease is the most common type of dementia. It has no known cause or specific treatment. Other causes include alcohol and drug abuse, medication effects (especially tranquilizers and sleeping pills), strokes, head injuries, and brain tumors. Sometimes severe depression in an elderly person is mistaken for dementia, and this can be treated if recognized. A complete medical evaluation and ongoing care with a doctor is important. Most people with dementia need help or supervision with daily living. Some may be able to live independently with occasional help; others require foster care or even care home placement. Alcohol, sedatives, and antihistamines may make the symptoms worse and should be avoided. Alzheimer's disease support groups are available in some communities and can be very valuable to the entire family. Prescription medica tion can ease the symptoms of Alzheimer's disease in some patients. Please arrange for medical follow-up. Return here if there is a sudden change in mental function, inability to move an arm or leg, inability to speak, fever, or any other significant change. As discussed, per conversation with patient's daughter the primary care doctor has provided a a additional prescription of medications gain control of her behavior. Family reports that they have had problems administering this medication as patient refuses to take the medication. I explained to patient's daughter that she needs to get back in touch with her primary care provider regarding what other measures or different ways of administering medication to her mother to help control her aggressive behavior. Referrals: DONNA VEGA MD [Primary Care Provider] - Follow up as needed I personally performed the services described in the documentation, reviewed and edited the documentation which was dictated to the scribe in my presence, and it accurately records my words and actions.
[2019-07-15] MEDS ORDERED: LORAZEPAM 0.5 MG TABLET PO SCH (18:00)
[2019-07-15] MEDS ORDERED: QUETIAPINE FUMARATE 25 MG TABLET PO SCH (18:00)
[2019-07-15] MEDS ORDERED: AMLODIPINE BESYLATE 5 MG TABLET PO SCH (18:00)
[2019-07-15 19:39] VITALS: BP 152/88
[2019-07-16] MEDS ORDERED: FUROSEMIDE 40 MG TABLET PO SCH (10:00)
[2019-07-16] MEDS ORDERED: ASPIRIN 81 MG TABLET, CHEWABLE PO SCH (10:00)
== END 2019-07-15 19:52 | disposition home or self-care (01) ==
LOC: ER 08:17
DX: F03.91 Unspecified dementia, unspecified severity, with behavioral disturbance (principal); I12.9 Hypertensive chronic kidney disease with stage 1 through stage 4 chronic kidney disease, or unspecified chronic kidney disease; N18.9 Chronic kidney disease, unspecified; I25.10 Atherosclerotic heart disease of native coronary artery without angina pectoris; Z88.2 Allergy status to sulfonamides
CPT/HCPCS: 93005; 99285; 96372; 96360; 96361; 36415; 87040; 80307; 83605; 83690; 83735; 85025; 80053; 81001; 84484; 71045; 70450; 93010; A9270 ×3; J2060; J7040